=== PATIENT | male | born 1975 | race Hispanic/Latino ===

== ENCOUNTER 2020-02-27 14:56 | Outpatient (RCR) | payer OTHER | END 2020-02-29 | LOC: PT 14:56 | PROVIDERS: ATTEND Specialist | DX: M77.02 Medial epicondylitis, left elbow (principal); S76.811A Strain of other specified muscles, fascia and tendons at thigh level, right thigh, initial encounter; M25.522 Pain in left elbow; M25.622 Stiffness of left elbow, not elsewhere classified; R53.1 Weakness ==

== ENCOUNTER 2020-03-21 14:09 | Outpatient (RCR) | payer OTHER | END 2020-03-31 | LOC: PT 14:09 | PROVIDERS: ATTEND Specialist | DX: S76.911A Strain of unspecified muscles, fascia and tendons at thigh level, right thigh, initial encounter (principal); M77.02 Medial epicondylitis, left elbow ==